=== PATIENT | male | born 1965 | race African-American/Black ===

== ENCOUNTER → 2017-08-13 | Outpatient (CLI) | payer OTHER ==
[~2017-08-13] MED LIST: APAP/HYDROCODON1 T13 PO; CIPRO500 MG PO; COL100 PO; FLA500 PO; FLE10 PO; HYDROCHLOROTH12.5 M2 PO; METFORMIN HCL850 MG PO; MOT800 PO; NOR10T PO
[2017-08-13 13:23] LABS: microscopic required? NO
[2017-08-13 13:33] LABS: BASOPHIL % 0.9 % (0-2); PLATELET COUNT 223 x10^3mcL (130-400)
[2017-08-13 13:36] LABS: urine erythrocyte NEGATIVE (NEGATIVE)
[2017-08-13 13:46] LABS: ALBUMIN 3.7 g/dL (3.4-5.0); ALKALINE PHOSPHATASE 63 U/L (46-116); ALT/SGPT 38 U/L (16-63); AMYLASE 51 U/L (25-115); AST/SGOT 22 U/L (15-37); BILIRUBIN TOTAL 0.21 mg/dL (0.20-1.00); CALCIUM 8.6 mg/dL (8.5-10.1); CARBON DIOXIDE 30.4 mmol/L (21-32); CHLORIDE SERUM 107 mmol/L (98-107); GFR1 > 60 mL/min; GLUCOSE SERUM 88 mg/dL (74-106); POTASSIUM SERUM 3.7 mmol/L (3.5-5.1); SODIUM SERUM 144 mmol/L (136-145); TOTAL PROTEIN, SERUM 7.4 g/dL (6.4-8.2)
[2017-08-13 13:57] LABS: RED CELL DISTRIBUTION WIDTH 14.6 % (11.5-14.5)
== END | disposition home or self-care (01) ==
LOC: LB 12:55
PROVIDERS: Family Medicine
DX: R10.9 Unspecified abdominal pain (principal)
CPT/HCPCS: 87491; 87591

== ENCOUNTER → 2020-01-24 | Outpatient (CLI) | payer OTHER ==
[2020-01-24 08:47] LABS: PLATELET COUNT 197 x10^3mcL (130-400); RED CELL DISTRIBUTION WIDTH 13.7 % (11.5-14.5)
[2020-01-24 09:03] LABS: C REACTIVE PROTEIN 0.2 mg/dL (<=0.9); CALCIUM 9.3 mg/dL (8.5-10.1); PHOSPHOROUS 4.4 mg/dL (2.5-4.9)
[2020-01-24 09:04] LABS: ALBUMIN 4.1 g/dL (3.4-5.0); ALKALINE PHOSPHATASE 62 U/L (46-116); ALT/SGPT 45 U/L (16-63); AST/SGOT 33 U/L (15-37); BILIRUBIN TOTAL 0.2 mg/dL (0.20-1.00); CALCIUM 9.2 mg/dL (8.5-10.1); CARBON DIOXIDE 29.2 mmol/L (21-32); CHLORIDE SERUM 104 mmol/L (98-107); CHOLESTEROL 168 mg/dL (<200); CHOLESTEROL/HDL RATIO 3.3; GFR1 > 60 mL/min; GLUCOSE SERUM 91 mg/dL (74-106); HDL CHOLESTEROL 51 mg/dL (40-60); POTASSIUM SERUM 3.8 mmol/L (3.5-5.1); SODIUM SERUM 140 mmol/L (136-145); TOTAL PROTEIN, SERUM 7.5 g/dL (6.4-8.2); TRIGLYCERIDES 68 mg/dL (<150)
[2020-01-25 10:05] LABS: RHEUMATOID ARTHRITIS FACTOR 148.9 IU/mL (0.0-13.9)
== END | disposition home or self-care (01) ==
LOC: RD 08:02
DX: Z00.00 Encounter for general adult medical examination without abnormal findings (principal); M13.80 Other specified arthritis, unspecified site; M06.9 Rheumatoid arthritis, unspecified
CPT/HCPCS: 86431